=== PATIENT | male | born 1970 | race Caucasian/White ===

== ENCOUNTER 2017-03-21 10:42 | Outpatient (CLI) ==
[2017-03-21 11:11] LABS: BASOPHILS % (AUTO) 0.5 % (0.0-3.0); EOSINOPHILS # (AUTO) 0.3 K/ul (0.0-0.7); EOSINOPHILS % (AUTO) 4.5 % (0.0-7.0); HEMATOCRIT 43.8 % (42.0-52.0); HEMOGLOBIN 14.8 g/dl (14.0-18.0); IMMATURE GRANULOCYTE % (AUTO) 1.6 % (0.0-5.0); LYMPHOCYTES # (AUTO) 1.5 K/uL (0.60-3.4); LYMPHOCYTES % (AUTO) 26.9 (10.0-50.0); MEAN CORPUSCULAR HEMOGLOBIN 31.1 pg (27.0-31.0); MEAN CORPUSCULAR HGB CONC 33.8 (31.8-35.4); MONOCYTES # (AUTO) 0.4 K/uL (0.4-2.0); MONOCYTES % (AUTO) 7.2 (0-10); NEUTROPHILS # (AUTO) 3.4 K/ul (2.0-6.9); NEUTROPHILS % (AUTO) 59.3; PLATELET COUNT 287 10^3/uL (140-440); RED BLOOD COUNT 4.76 10^6/ul (4.70-6.10); WHITE BLOOD COUNT 5.72 K/ul (4.2-10.2)
[2017-03-21 11:49] LABS: ALBUMIN 4.3 g/dL (3.4-5.0); ALBUMIN/GLOBULIN RATIO 1.23; ANION GAP 10.8; BILIRUBIN,TOTAL 0.44 mg/dL (0.00-1.20); BUN/CREATININE RATIO 16.83; CALCIUM 10.3 mg/dL (8.2-10.2); CHOL/HDL RATIO 4.9 (4.5-6.4); CREATININE 1.01 mg/dL (0.60-1.10); POTASSIUM 4.8 mmol/L (3.5-5.1); TOTAL PROTEIN 7.8 g/dL (6.4-8.2)
== END 2017-03-21 10:43 ==
LOC: LAB 10:42
PROVIDERS: ATTEND Internal Medicine
DX: E78.5 Hyperlipidemia, unspecified (principal)
CPT/HCPCS: 36415; 80053; 80061; 82607; 83036; 84443; 85025

== ENCOUNTER 2017-04-28 07:46 | Outpatient (CLI) ==
[2017-04-28 07:56] LABS: BASOPHILS % (AUTO) 0.5 % (0.0-3.0); EOSINOPHILS # (AUTO) 0.2 K/ul (0.0-0.7); EOSINOPHILS % (AUTO) 3.6 % (0.0-7.0); HEMATOCRIT 42.8 % (42.0-52.0); HEMOGLOBIN 14.8 g/dl (14.0-18.0); IMMATURE GRANULOCYTE % (AUTO) 1.3 % (0.0-5.0); LYMPHOCYTES # (AUTO) 1.3 K/uL (0.60-3.4); LYMPHOCYTES % (AUTO) 20.5 (10.0-50.0); MEAN CORPUSCULAR HEMOGLOBIN 31.3 pg (27.0-31.0); MEAN CORPUSCULAR HGB CONC 34.6 (31.8-35.4); MEAN CORPUSCULAR VOLUME 90.5 fl (80.0-94.0); MONOCYTES # (AUTO) 0.5 K/uL (0.4-2.0); MONOCYTES % (AUTO) 7.6 (0-10); NEUTROPHILS # (AUTO) 4.2 K/ul (2.0-6.9); NEUTROPHILS % (AUTO) 66.5; PLATELET COUNT 288 10^3/uL (140-440); RED BLOOD COUNT 4.73 10^6/ul (4.70-6.10); WHITE BLOOD COUNT 6.33 K/ul (4.2-10.2)
[2017-04-28 08:15] LABS: ALBUMIN/GLOBULIN RATIO 1.25; ANION GAP 12.1; BILIRUBIN,TOTAL 0.6 mg/dL (0.00-1.20); BUN/CREATININE RATIO 9.34; CALCIUM 9.8 mg/dL (8.2-10.2); CREATININE 1.07 mg/dL (0.60-1.10); POTASSIUM 4.1 mmol/L (3.5-5.1); TOTAL PROTEIN 7.2 g/dL (6.4-8.2)
== END 2017-04-28 07:47 | disposition home or self-care (01) ==
LOC: LAB 07:46
PROVIDERS: ATTEND Pain Medicine Interventional Pain Medicine
DX: Z01.812 Encounter for preprocedural laboratory examination (principal)
CPT/HCPCS: 36415; 80053; 85025

== ENCOUNTER 2017-05-04 08:04 | Outpatient (CLI) ==
[2017-05-04 08:38] LABS: BILIRUBIN,DIRECT 0.15 mg/dL (0.00-0.30); BILIRUBIN,TOTAL 0.45 mg/dL (0.00-1.20); TOTAL PROTEIN 7.4 g/dL (6.4-8.2)
[2017-05-05 14:21] LABS: ANION GAP 17.4; BUN/CREATININE RATIO 13.08; CALCIUM 9.9 mg/dL (8.2-10.2); CREATININE 1.07 mg/dL (0.60-1.10); POTASSIUM 4.4 mmol/L (3.5-5.1)
[2017-05-05 14:35] LABS: ALBUMIN 4.1 g/dL (3.4-5.0); ALBUMIN/GLOBULIN RATIO 1.24
== END 2017-05-04 08:05 | disposition home or self-care (01) ==
LOC: LAB 08:04
PROVIDERS: ATTEND Pain Medicine Interventional Pain Medicine
DX: Z51.81 Encounter for therapeutic drug level monitoring (principal); Z79.891 Long term (current) use of opiate analgesic; F19.20 Other psychoactive substance dependence, uncomplicated
CPT/HCPCS: 36415; 80053; 80076; 82248; 84100

== ENCOUNTER 2017-09-09 11:11 | Outpatient (CLI) | END 2017-09-09 11:12 | disposition home or self-care (01) | LOC: LAB 11:11 | PROVIDERS: ATTEND Internal Medicine | DX: E78.5 Hyperlipidemia, unspecified (principal); G62.9 Polyneuropathy, unspecified; Z12.5 Encounter for screening for malignant neoplasm of prostate; Z82.49 Family history of ischemic heart disease and other diseases of the circulatory system | CPT/HCPCS: 36415; 80053; 80061; 83036; 84443; 85025 ==

== ENCOUNTER 2018-11-30 15:31 | Outpatient (CLI) ==
[2018-07-20 09:37] VITALS: BMI 28.0
== END 2018-11-30 15:32 | disposition home or self-care (01) ==
LOC: RHC-LAB 15:31
PROVIDERS: ATTEND Nurse Practitioner Family
DX: Z00.00 Encounter for general adult medical examination without abnormal findings (principal); Z12.5 Encounter for screening for malignant neoplasm of prostate
CPT/HCPCS: 36415; 80053; 80061; 84443; 85025

== ENCOUNTER 2019-02-02 08:16 | Outpatient (CLI) ==
[2018-07-20 09:37] VITALS: BMI 28.0
--- NOTE | 2019-02-02 08:58 | US ---
EXAM: Ultrasound of the right groin. History: Right groin pain. Technique: Multiple sonographic images through the right groin were obtained. Color duplex Doppler was used to interrogate vascular flow. Findings: No masses, cysts or fluid collections identified. No lymph nodes are seen. Impression: No sonographic abnormalities
== END 2019-02-02 08:17 | disposition home or self-care (01) ==
LOC: RAD 08:16
PROVIDERS: ATTEND Nurse Practitioner Family
DX: R10.31 Right lower quadrant pain (principal); L03.314 Cellulitis of groin; R10.819 Abdominal tenderness, unspecified site
CPT/HCPCS: 76882